=== PATIENT | female | born 1945 | race Caucasian/White ===

== ENCOUNTER 2018-08-16 00:56 | Emergency (ER) | payer MEDICARE ==
--- NOTE | 2018-08-16 01:08 | ED.PDOC ---
History of Present Illness - General Chief Complaint: Lower Extremity Injury Stated Complaint: rt knee pain Time Seen by Provider: 08/16/18 01:07 Source: patient Exam Limitations: no limitations - History of Present Illness Initial Comments: Nuris Casarez 73 y/o female stated that she had dull ache on her right knee while she was about to go to sleep tonight.Stated unable to go to sleep due to pain. Occurred: this evening Pain - Lower Extremity: moderate: Right Knee Method of Injury: unknown Improving Factors: rest Worsening Factors: movement Associated Symptoms: pain Allergies/Adverse Reactions: Allergies NO KNOWN ALLERGY Allergy (Verified 08/16/18 01:39) Home Medications: Ambulatory Orders Cephalexin 1,000 mg PO BID 10 Days #40 cap 08/16/18 Levothyroxine Sodium [Synthroid] 50 mcg PO DAILY 08/16/18 Lisinopril & Hydrochlorothiazi 20 mg DAILY 08/16/18 Lisinopril & Hydrochlorothiazi [Zestoretic 20-25 mg] 1 tab PO DAILY 08/16/18 Metoprolol Succinate [Kapspargo Sprinkle] 25 mg PO DAILY 08/16/18 Simvastatin [Zocor] 20 mg PO DAILY 08/16/18 Sulfa/Trimeth 800/160 (Ds) Tab [Bactrim DS] 1 tablet PO BID 10 Days #20 tab 08/16/18 predniSONE 20 mg PO DAILY #5 tab 08/16/18 Review of Systems - Review of Systems Constitutional: States: no symptoms reported EENTM: States: no symptoms reported Respiratory: States: no symptoms reported Cardiology: States: no symptoms reported Gastrointestinal/Abdominal: States: no symptoms reported Genitourinary: States: no symptoms reported Musculoskeletal: States: joint pain, joint swelling All other Systems: Reviewed and Negative, No Change from Baseline Past Medical History (General) - Patient Medical History Hx Hypertension: Yes Hx Thyroid Disease: Yes Surgical History: cholecystectomy - Social History Hx Tobacco Use: No Hx Substance Use: No Hx Substance Use Treatment: No Hx Depression: No Feels Threatened In Home Enviroment: No Family Medical History - Family History Mother Family History: Unknown Hx Family Hypertension: Yes Hx Family Cancer: Yes - sister-breast;oral-mom Physical Exam - Physical Exam General Appearance: Alert, Comfortable, No apparent distress Eyes, Ears, Nose, Throat: PERRL/EOMI, normal ENT inspection Neck: non-tender, full range of motion, supple Cardiovascular/Respiratory: regular rate, rhythm, no M/R/G, normal peripheral pulses, no respiratory distress Gastrointestinal/Abdominal: non-tender, no organomegaly Back: no CVA tenderness, no vertebral tenderness Thigh/Hip: normal inspection, non-tender, no evidence of injury Leg: normal inspection, non-tender, no evidence of injury, other - no calf tenderness bilaterally Knee: joint effusion - suprapatellar area, limited ROM - pain, pain Ankle: normal inspection, no evidence of injury, swelling - lateral malleolus right Foot: normal inspection, no evidence of injury Neuro/Tendon: normal sensation, normal motor functions, normal tendon functions Mental Status: alert, oriented x 3 Skin: normal color, warm/dry Progress - Progress Progress: 08/16/18 03:53 Vital Signs - 24 hr 08/16/18 08/16/18 01:04 02:31 Temperature 100.0 F H Pulse Rate [ 87 86 Left Brachial] Respiratory 20 18 Rate Blood Pressure 156/83 175/96 [Left Arm] O2 Sat by Pulse 94 L 96 Oximetry 08/16/18 03:55 Discuss all test result with patient with possible cause of her right knee pain advised to follow up with primary for recheck 17 Aug 2018 with her Md in [place], [place] where she lives and go to ER if symptoms worsens;stated going back to [place] tomorrow morning 16 Aug 2018 08/16/18 04:12 - Results/Orders Results/Orders: 08/16/18 01:36 IV Care:Saline Lock per [facility] QSHIFT Laboratory Results - last 24 hr 08/16/18 08/16/18 08/16/18 01:36 01:36 01:36 WBC 10.4 RBC 4.23 Hgb 12.4 Hct 36.7 MCV 86.8 MCH 29.4 MCHC 33.8 RDW 13.9 Plt Count 186 MPV 9.4 Absolute Neuts (auto) 9.00 H Absolute Lymphs (auto) 0.60 L Absolute Monos (auto) 0.70 Absolute Eos (auto) 0.00 Absolute Basos (auto) 0.00 Neutrophils % 86.6 H Lymphocytes % 6.3 L Monocytes % 6.5 Eosinophils % 0.3 L Basophils % 0.3 ESR 20 Sodium 129 L Potassium 4.0 Chloride 93 L Carbon Dioxide 25 Anion Gap 15.0 BUN 23 H Creatinine 1.07 BUN/Creatinine Ratio 21.5 H Random Glucose 114 H Serum Osmolality 263.5 L Uric Acid 7.3 H Calcium 8.7 Total Bilirubin 0.6 AST 16 ALT 13 Alkaline Phosphatase 81 C-Reactive Protein 5.3 H Serum Total Protein 6.8 Albumin 3.6 Globulin 3.2 Albumin/Globulin Ratio 1.1 - EKG/XRAY/CT XRAY: knee - right no effusion no fracture Departure - Departure Clinical Impression: Hyperuricemia, Hyponatremia Knee pain, right Qualifiers: Chronicity: unspecified Qualified Code(s): M25.561 - Pain in right knee Time of Disposition: 04:03 Disposition: Discharge to Home or Self Care Condition: Fair Departure Forms: ED Discharge - Pt. Copy, Patient Portal Self Enrollment Instructions: DI for Knee Pain, Gout (DC), Lifestyle Changes to Manage Gout, Gout Prescriptions: Cephalexin 1,000 mg PO BID 10 Days #40 cap predniSONE 20 mg PO DAILY #5 tab Sulfa/Trimeth 800/160 (Ds) Tab [Bactrim DS] 1 tablet PO BID 10 Days #20 tab Home Medications: Ambulatory Orders Cephalexin 1,000 mg PO BID 10 Days #40 cap 08/16/18 Levothyroxine Sodium [Synthroid] 50 mcg PO DAILY 08/16/18 Lisinopril & Hydrochlorothiazi 20 mg DAILY 08/16/18 Lisinopril & Hydrochlorothiazi [Zestoretic 20-25 mg] 1 tab PO DAILY 08/16/18 Metoprolol Succinate [Kapspargo Sprinkle] 25 mg PO DAILY 08/16/18 Simvastatin [Zocor] 20 mg PO DAILY 08/16/18 Sulfa/Trimeth 800/160 (Ds) Tab [Bactrim DS] 1 tablet PO BID 10 Days #20 tab 08/16/18 predniSONE 20 mg PO DAILY #5 tab 08/16/18 Additional Instructions: NEED TO FOLLOW UP with primary MD 17 Aug 2018 or GO TO ER if symptoms worsens on the way home;continue with all home medications
[2018-08-16] MEDS ORDERED: MORPHINE SULFATE INJ 10 MG/ML VIAL IV ONE (01:38)
[2018-08-16] MEDS ORDERED: PROCHLORPERAZINE INJ 10 MG/2 ML VIAL IV ONE (01:38)
[2018-08-16 02:36] VITALS: O2SAT 96
--- NOTE | 2018-08-16 02:44 | RAD ---
EXAM DESCRIPTION: Knee,Right 2 or More Views CLINICAL HISTORY: pain knee COMPARISON: None. FINDINGS: 2 views of the right knee. No acute fracture or dislocation. Osteopenia. No definite joint effusion. IMPRESSION: 1. No acute fracture or dislocation. Electronically signed by: Gilberto Antonio 08/16/2018 2:42 AM CDT
[2018-08-16] MEDS ORDERED: DEXAMETHASONE INJ 4 MG/ML VIAL IV ONE (02:56)
[2018-08-16] MEDS ORDERED: cefTRIAXone SODIUM 1 GM in SODIUM CHL 0.9% 50ML MIN-BAG+ 50 ML IVPB ONE (02:56)
[2018-08-16] MEDS ORDERED: KETOROLAC TROMETHAMINE INJ 30 MG/ML VIAL IV ONE (02:56)
[2018-08-16] MEDS ORDERED: PANTOPRAZOLE SODIUM TAB 40 MG PO ONE (02:56)
[2018-08-16] MEDS ORDERED: cefTRIAXone SODIUM 1 GM VIAL ONE (02:58)
[2018-08-16] MEDS ORDERED: SODIUM CHL 0.9% 50ML MIN-BAG+ 50 ML IVPB ONE (02:58)
[2018-08-16] MEDS ORDERED: HYDROCOD/APAP 10/325 (ER DISP) # 3 tablets PO ONE (04:08)
[2018-08-16 04:27] VITALS: BP 141/65; TEMP 99.1
== END 2018-08-16 04:27 | disposition home or self-care (01) ==
LOC: ER 00:56
DX: M25.561 Pain in right knee (principal); E87.1 Hypo-osmolality and hyponatremia; E79.0 Hyperuricemia without signs of inflammatory arthritis and tophaceous disease; I10 Essential (primary) hypertension; E07.9 Disorder of thyroid, unspecified; Z79.899 Other long term (current) drug therapy
CPT/HCPCS: 73560; 80053; 84550; 85025; 85651; 86140; J0696; J0780; J1100; J1885; J2270; J7050